=== PATIENT | female | born 1970 | race Caucasian/White ===

== ENCOUNTER 2021-03-29 01:16 | Emergency (ER) | payer BC ==
[2021-03-29] MEDS ORDERED: LEXAPRO5 MG PO (01:23)
[2021-03-29 01:43] LABS: BASO # 0.02 (0.02-0.10); EOS # 0.28 (0.04-0.40); EOS % 2.9 % (1.0-5.0); HEMATOCRIT 40.4 % (37.0-47.0); HEMOGLOBIN 13.3 g/dL (12.5-16.0); LYMPH# 3.07 (1.50-4.00); MEAN CELL VOLUME 82 fl (78-100); MEAN CORPUSCULAR HEMOGLOBIN 27 pg (27-31); MEAN CORPUSCULAR HGB CONC 33 g/dL (33-37); MEAN PLATELET VOLUME 8.8 fl (7.4-10.4); MONO # 0.66 (0.20-0.80); NEU # 5.59 (1.40-6.50); PLATELET COUNT 293 K/mm3 (130-400); RED BLOOD COUNT 4.91 M/mm3 (4.10-5.30); RED CELL DISTRIBUTION WIDTH 13.5 % (11.5-14.5); WHITE BLOOD COUNT 9.6 K/mm3 (4.8-10.8)
[2021-03-29 01:48] LABS: ALBUMIN 4.1 g/dL (3.5-5.0); POTASSIUM 3.7 mmol/L (3.5-5.1)
[2021-03-29 01:49] LABS: CALCIUM 9.3 mg/dL (8.3-10.5)
[2021-03-29 01:50] LABS: TOTAL PROTEIN 7.3 g/dL (6.4-8.3)
[2021-03-29 01:52] LABS: TOTAL BILIRUBIN 0.7 mg/dL (0.2-1.2)
[2021-03-29] MEDS ORDERED: PRILOSEC 20MG20 MG PO (05:26)
[2021-03-29 05:44] VITALS: BP 130/71
== END 2021-03-29 05:44 | disposition home or self-care (01) ==
LOC: ED 01:16
PROVIDERS: Physician Assistant
DX: K21.9 Gastro-esophageal reflux disease without esophagitis (principal); I10 Essential (primary) hypertension; F32.9 Major depressive disorder, single episode, unspecified